=== PATIENT | male | born 1945 | race Caucasian/White ===

== ENCOUNTER 2020-03-28 10:03 | Outpatient (CLI) | payer MEDICARE | END 2020-03-28 10:04 | disposition critical access hospital (66) | LOC: EMS 10:03 | PROVIDERS: ATTEND Emergency Medicine | DX: R00.0 Tachycardia, unspecified (principal) | CPT/HCPCS: A0425; A0429 ==

== ENCOUNTER 2020-03-28 10:44 | Emergency (ER) | payer MEDICARE ==
[2020-03-28] MEDS ORDERED: SODIUM CHLORIDE 0.9% 1,000 ML IV STA (10:56)
[2020-03-28] MEDS ORDERED: METOPROLOL 5 MG/5 ML VIAL IVP STA (10:57)
--- NOTE | 2020-03-28 10:59 | ED Physician Documentation ---
PD HPI CHEST PAIN - Stated complaint Stated Complaint: ELEVATED HEART RATE - Chief complaint Chief Complaint: Cardiac - History obtained from History obtained from: Patient, EMS - History of Present Illness Timing - onset: How many hours ago (about 5 am, so 5-6 hours ago, with waxing and waning symptoms.), Today Timing - onset during: Sleep Timing - duration: Hours Timing - details: Still present, Waxing and waning Quality: Pressure Location: Substernal Radiation: No: Back, Abdominal Worsened by: No: Inspiration, Movement Associated symptoms: Nausea, Feeling faint / dizzy, Palpitations. No: Shortness of air Similar symptoms before: Diagnosis (history of paroxysmal SVT and is on Metoprolol for it. Usually episodes last 10-20 minutes and resolve. Today has had symptoms variably for 5-6 hours. WEnt to walk in clinic but they just called EMS to bring him to ER. No treatment [employer].) Review of Systems Constitutional: denies: Fever, Chills Nose: denies: Rhinorrhea / runny nose, Congestion Throat: denies: Sore throat Cardiac: reports: Palpitations. denies: Chest pain / pressure, Pedal edema, Calf pain Respiratory: reports: Dyspnea. denies: Cough Musculoskeletal: denies: Extremity swelling Neurologic: reports: Generalized weakness, Near syncope (lightheaded anyway). denies: Focal weakness, Numbness PD PAST MEDICAL HISTORY - Past Medical History Cardiovascular: Arrhythmia (ST) Respiratory: None Neuro: None Endocrine/Autoimmune: None - Present Medications Home Medications: Ambulatory Orders Medication Instructions Recorded Confirmed Metoprolol Tartrate [Lopressor] 25 mg PO BID 03/28/20 03/28/20 Metoprolol Tartrate [Lopressor] 25 mg PO BID 7 Days #21 tab 03/28/20 - Allergies Allergies/Adverse Reactions: Allergies Allergy/AdvReac Type Severity Reaction Status Date / Time Sulfa (Sulfonamide Allergy Unknown Verified 03/28/20 11:00 Antibiotics) - Living Situation Living Situation: reports: Alone Living Arrangement: reports: At home - Social History Does the pt smoke?: No Does the pt drink ETOH?: No Does the pt have substance abuse?: No PD ED PE NORMAL - Vitals Vital signs reviewed: Yes - General General: Alert and oriented X 3, Well developed/nourished - Neck Neck: Supple, no meningeal sign, No adenopathy, No JVD - Cardiac Cardiac: No murmur. No: RRR (variable from 80 NSR to 180 SVT. ) - Respiratory Respiratory: Clear bilaterally - Abdomen Abdomen: Soft, Non tender - Derm Derm: Normal color, Warm and dry - Extremities Extremities: No tenderness to palpate, Normal ROM s pain, No edema, No calf tenderness / cord - Neuro Neuro: Alert and oriented X 3, No motor deficit, Normal speech Results - Vitals Vitals: Vital Signs - 24 hr 03/28/20 03/28/20 03/28/20 10:49 11:03 11:08 Temperature 36.5 C Heart Rate 182 H 179 H 117 H Respiratory 39 H 22 97 H Rate Blood Pressure 121/100 H 127/83 H 97/84 H O2 Saturation 100 99 19 L 03/28/20 03/28/20 03/28/20 11:13 11:23 11:26 Temperature Heart Rate 107 H 138 H 107 H Respiratory 19 17 20 Rate Blood Pressure 113/73 93/80 101/67 O2 Saturation 100 98 98 03/28/20 03/28/20 03/28/20 11:32 11:47 12:15 Temperature Heart Rate 84 79 81 Respiratory 20 18 15 Rate Blood Pressure 123/68 123/68 121/72 O2 Saturation 97 97 98 Oxygen O2 Source Room air - EKG (time done) 10:50 Rate: Rate (enter#) (186) Rhythm: SVT Ischemia: Normal ST segments, ST depression (laterally, likely rate related. ) - Labs Labs: Laboratory Tests 03/28/20 03/28/20 03/28/20 11:10 11:10 11:10 WBC 13.0 H RBC 4.88 Hgb 14.7 Hct 44.8 MCV 91.8 MCH 30.1 MCHC 32.8 RDW 12.4 Plt Count 192 MPV 10.3 Neut # (Auto) 11.5 H Lymph # (Auto) 0.7 L [place] # (Auto) 0.7 Eos # (Auto) 0.0 Baso # (Auto) 0.0 Absolute Nucleated RBC 0.00 Nucleated RBC % 0.0 Sodium 139 Potassium 3.8 Chloride 101 Carbon Dioxide 25 Anion Gap 13.0 BUN 16 Creatinine 0.9 Estimated GFR (MDRD) 83 L Glucose 108 H Calcium 8.8 Magnesium 1.9 Total Bilirubin 1.2 H AST 25 ALT 16 Alkaline Phosphatase 51 Troponin I High Sens 42.0 H* Total Protein 6.6 L Albumin 4.0 Globulin 2.6 Albumin/Globulin Ratio 1.5 Lipase 25 PD MEDICAL DECISION MAKING - ED course Complexity details: re-evaluated patient (consistently in NSR after MEtoprolol 5 mg iV. HE feels better. CAn increase his metoprolol dose and he is seeing his lance crewmember coincidentally this coming week. ), considered differential (going into and out of apparent SVT. Does not appear irregular like atrial fib. ), d/w patient Departure - Departure Disposition: Home, Self Care Clinical Impression: Paroxysmal SVT (supraventricular tachycardia) Condition: Stable Record reviewed to determine appropriate education?: Yes Follow-Up: Renate Mcmillan MD [Primary Care Provider] - Prescriptions: Metoprolol Tartrate [Lopressor] 25 mg PO BID 7 Days #21 tab Comments: Hydrated. Increase your metoprolol from 25 mg twice daily to a new dose of 50 mg in the morning and 25 mg at night. Follow-up with your lance crewmember Monday as planned. Return if recurrent episodes despite the increased dose. Discharge Date/Time: 03/28/20 12:23
[2020-03-28 11:20] LABS: BASOPHILS % (AUTO) 0.3 %; EOSINOPHILS % (AUTO) 0.1 %; HGB - HEMOGLOBIN 14.7 g/dL (14.0-18.0); LYMPHOCYTES # (AUTO) 0.7 10^3/uL (1.5-3.5); LYMPHOCYTES % (AUTO) 5.2 %; MEAN CORPUSCULAR HEMOGLOBIN 30.1 pg (27.0-31.0); MEAN CORPUSCULAR HGB CONC 32.8 g/dL (32.0-36.0); MEAN CORPUSCULAR VOLUME 91.8 fL (80.0-94.0); MEAN PLATELET VOLUME 10.3 fL (7.4-11.4); MONOCYTES # (AUTO) 0.7 10^3/uL (0.0-1.0); MONOCYTES % (AUTO) 5.4 %; NEUTROPHILS # (AUTO) 11.5 10^3/uL (1.5-6.6); NEUTROPHILS % (AUTO) 88.7 %; PLT - PLATELET COUNT 192 10^3/uL (130-450); RED BLOOD COUNT 4.88 10^6/uL (4.70-6.10); RED CELL DISTRIBUTION WIDTH 12.4 % (12.0-15.0)
[2020-03-28] MEDS: METOPROLOL 5 MG/5 ML VIAL IVP STA ×2 (11:30→11:35)
--- NOTE | 2020-03-28 11:36 | XRAY Report ---
PROCEDURE: Chest 1 View X-Ray INDICATIONS: Chest Pain TECHNIQUE: One view of the chest was acquired. COMPARISON: None. FINDINGS: Surgical changes and devices: None. Lungs and pleura: No pleural effusions or pneumothorax. Lungs are clear. Mediastinum: Mediastinal contours appear normal. Heart size is normal. Bones and chest wall: No suspicious bony lesions. Age-appropriate degenerative changes are seen. Overlying soft tissues appear unremarkable. IMPRESSION: Portable chest within normal limits for age. Reviewed by: Mychal Moraes MD on 03/28/2020 10:35 AM [facility] Approved by: Mychal Moraes MD on 03/28/2020 10:35 AM [facility] Station ID: [id number]
[2020-03-28 11:40] LABS: ALBUMIN/GLOBULIN RATIO 1.5 (1.0-2.2); BILIRUBIN,TOTAL 1.2 mg/dL (0.2-1.0); CALCIUM 8.8 mg/dL (8.5-10.3); CREATININE 0.9 mg/dL (0.6-1.2); MAGNESIUM 1.9 mg/dL (1.7-2.8); TOTAL PROTEIN 6.6 g/dL (6.7-8.2)
[2020-03-28 12:15] VITALS: BP 121/72
== END 2020-03-28 12:23 | disposition home or self-care (01) ==
LOC: ED 10:44
DX: I47.1 Supraventricular tachycardia (principal)
CPT/HCPCS: 80053; 83690; 83735; 84484; 85025; 93005; 96374; 99284

== ENCOUNTER 2020-04-27 10:31 | Outpatient (CLI) | payer MEDICARE | END 2020-04-27 10:32 | disposition critical access hospital (66) | LOC: EMS 10:31 | PROVIDERS: ATTEND Emergency Medicine | DX: R00.2 Palpitations (principal); R07.89 Other chest pain | CPT/HCPCS: A0425; A0427 ==

== ENCOUNTER 2020-04-27 11:14 | Emergency (ER) | payer MEDICARE ==
[2020-04-27] MEDS ORDERED: METOPROLOL 5 MG/5 ML VIAL IVP STA ×4 (11:23→15:06)
[2020-04-27] MEDS ORDERED: SODIUM CHLORIDE 0.9% 1,000 ML IV STA (11:23)
--- NOTE | 2020-04-27 11:23 | ED Physician Documentation ---
PD HPI CHEST PAIN - Stated complaint Stated Complaint: SVT - Chief complaint Chief Complaint: Cardiac - History obtained from History obtained from: Patient, EMS - History of Present Illness Timing - onset: How many hours ago (few), Today, Last night Timing - onset during: Sleep, Rest Timing - duration: Hours (few) Timing - details: Gradual onset, Waxing and waning Quality: Tightness, Other (feeling of fast heart rate up and down, but has not relented after few hours. History of SVT and is due to have ablation at by Dr. White, Cardiology at [facility].). No: Pressure Location: Substernal, Left chest Radiation: No: Neck, Back Improved by: No: Rest Worsened by: No: Exertion, Movement Associated symptoms: Shortness of air, Palpitations. No: Nausea, Feeling faint / dizzy Similar symptoms before: Diagnosis (SVT episodes; no history of atrial fib. Prior ECG episodes found SVT.) Recently seen: Clinic, Emergency Dept (1 month ago for similar and had apparent SVT improved with dose metoprolol. Had his PO dose increased and followed up with his Clinical Nurse Occupational Medicine at [facility]. Then went to [facility] Clinical Nurse Occupational Medicine and has sched uled ablation at in 2 days.) Review of Systems Constitutional: denies: Fever, Chills Nose: denies: Rhinorrhea / runny nose, Congestion Throat: denies: Sore throat Cardiac: reports: Chest pain / pressure, Palpitations. denies: Pedal edema, Calf pain Respiratory: reports: Dyspnea. denies: Cough, Wheezing GI: denies: Abdominal Pain, Nausea, Vomiting Musculoskeletal: denies: Extremity swelling PD PAST MEDICAL HISTORY - Past Medical History Cardiovascular: Arrhythmia (SVT) Respiratory: None Neuro: None Endocrine/Autoimmune: None - Past Surgical History Past Surgical History: Yes Cardiovascular: Vascular surgery HEENT: Tonsil/Adenoidectomy - Present Medications Home Medications: Ambulatory Orders Medication Instructions Recorded Confirmed Metoprolol Tartrate [Lopressor] 25 mg PO BID 03/28/20 04/27/20 - Allergies Allergies/Adverse Reactions: Allergies Allergy/AdvReac Type Severity Reaction Status Date / Time Sulfa (Sulfonamide Allergy Unknown Verified 04/27/20 11:22 Antibiotics) - Social History Does the pt smoke?: No Smoking Status: Never smoker Does the pt drink ETOH?: No Does the pt have substance abuse?: No - Immunizations Immunizations are current?: Yes - POLST Patient has POLST: No PD ED PE NORMAL - Vitals Vital signs reviewed: Yes - General General: Alert and oriented X 3, No acute distress, Well developed/nourished - Neck Neck: Supple, no meningeal sign, No adenopathy, No JVD - Cardiac Cardiac: No murmur. No: RRR (rapid heart rate at 180s, with occasional slowing to what appears sinus with possible P waves vs flutter, then back to fast 180s.) - Respiratory Respiratory: Clear bilaterally - Abdomen Abdomen: Soft, Non tender - Derm Derm: Normal color, Warm and dry - Extremities Extremities: No tenderness to palpate, Normal ROM s pain, No edema, No calf tenderness / cord - Neuro Neuro: Alert and oriented X 3, No motor deficit, No sensory deficit, Normal speech Eye Opening: Spontaneous Motor: Obeys Commands Verbal: Oriented GCS Score: 15 Results - Vitals Vitals: Vital Signs - 24 hr 04/27/20 04/27/20 04/27/20 11:20 11:37 11:43 Temperature 36.3 C L 36.7 C Heart Rate 190 H 100 135 H Respiratory 18 15 13 Rate Blood Pressure 162/100 H 90/69 114/89 H O2 Saturation 99 97 98 04/27/20 04/27/20 04/27/20 12:01 12:04 12:30 Temperature 37.3 C Heart Rate 103 H 101 H 117 H Respiratory 12 11 L 15 Rate Blood Pressure 114/72 114/72 125/85 H O2 Saturation 97 97 100 04/27/20 04/27/20 04/27/20 13:00 13:30 14:07 Temperature Heart Rate 113 H 112 H 96 Respiratory 15 12 10 L Rate Blood Pressure 132/101 H 126/88 H 115/83 H O2 Saturation 100 98 97 04/27/20 04/27/20 04/27/20 14:30 15:00 15:30 Temperature Heart Rate 110 H 100 99 Respiratory 15 13 12 Rate Blood Pressure 118/86 H 127/95 H 130/100 H O2 Saturation 99 100 99 Oxygen O2 Source Room air - EKG (time done) 11:19 Rate: Rate (enter#) (193) Rhythm: SVT [place]: Normal Ischemia: Non specific changes (laterally c/w rate related ischemia). No: ST elevation c/w ischemia Compare to prior EKG: Other (similar to prior episode of SVT from a month ago.) 12:24 Rate: Rate (enter#) (98) Rhythm: Atrial fibrillation Ischemia: Normal ST segments. No: ST elevation c/w ischemia, ST depression - Labs Labs: Laboratory Tests 04/27/20 04/27/20 04/27/20 11:34 11:34 11:34 WBC 7.5 RBC 5.19 Hgb 15.5 Hct 47.1 MCV 90.8 MCH 29.9 MCHC 32.9 RDW 12.2 Plt Count 208 MPV 10.2 Neut # (Auto) 5.8 Lymph # (Auto) 1.2 L [place] # (Auto) 0.4 Eos # (Auto) 0.1 Baso # (Auto) 0.0 Absolute Nucleated RBC 0.00 Nucleated RBC % 0.0 Sodium 139 Potassium 3.9 Chloride 104 Carbon Dioxide 25 Anion Gap 10.0 BUN 20 Creatinine 0.8 Estimated GFR (MDRD) 95 Glucose 109 H Calcium 8.9 Magnesium 1.9 Total Bilirubin 0.8 AST 24 ALT 12 Alkaline Phosphatase 55 B-Natriuretic Peptide 48 Total Protein 6.9 Albumin 4.2 Globulin 2.7 Albumin/Globulin Ratio 1.6 Lipase 36 Nasal Adenovirus (PCR) Nasal B. parapertussis DNA (PCR) Nasal Coronavir 229E PCR Nasal Coronavir HKU1 PCR Nasal Coronavir NL63 PCR Nasal Coronavir OC43 PCR Nasal Enterovir/Rhinovir PCR Nasal Influenza B PCR Nasal Influenza A PCR Nasal Parainfluen 1 PCR Nasal Parainfluen 2 PCR Nasal Parainfluen 3 PCR Nasal Parainfluen 4 PCR Nasal RSV (PCR) Nasal B.pertussis DNA PCR Nasal C.pneumoniae (PCR) Doe Human Metapneumo PCR Nasal M.pneumoniae (PCR) Nasal SARS-CoV-2 (PCR) Ethyl Alcohol < 5.0 04/27/20 15:00 WBC RBC Hgb Hct MCV MCH MCHC RDW Plt Count MPV Neut # (Auto) Lymph # (Auto) [place] # (Auto) Eos # (Auto) Baso # (Auto) Absolute Nucleated RBC Nucleated RBC % Sodium Potassium Chloride Carbon Dioxide Anion Gap BUN Creatinine Estimated GFR (MDRD) Glucose Calcium Magnesium Total Bilirubin AST ALT Alkaline Phosphatase B-Natriuretic Peptide Total Protein Albumin Globulin Albumin/Globulin Ratio Lipase Nasal Adenovirus (PCR) NOT DETECTED Nasal B. parapertussis DNA (PCR) NOT DETECTED Nasal Coronavir 229E PCR NOT DETECTED Nasal Coronavir HKU1 PCR NOT DETECTED Nasal Coronavir NL63 PCR NOT DETECTED Nasal Coronavir OC43 PCR NOT DETECTED Nasal Enterovir/Rhinovir PCR NOT DETECTED Nasal Influenza B PCR NOT DETECTED Nasal Influenza A PCR NOT DETECTED Nasal Parainfluen 1 PCR NOT DETECTED Nasal Parainfluen 2 PCR NOT DETECTED Nasal Parainfluen 3 PCR NOT DETECTED Nasal Parainfluen 4 PCR NOT DETECTED Nasal RSV (PCR) NOT DETECTED Nasal B.pertussis DNA PCR NOT DETECTED Nasal C.pneumoniae (PCR) NOT DETECTED Doe Human Metapneumo PCR NOT DETECTED Nasal M.pneumoniae (PCR) NOT DETECTED Nasal SARS-CoV-2 (PCR) NOT DETECTED Ethyl Alcohol - Rads (name of study) chest xray Radiology: Prelim report reviewed (no acute process), See rad report PD MEDICAL DECISION MAKING - ED course Complexity details: re-evaluated patient (rate slowed but now clearly atrial fib. Remains rate controlled at 95-110. No symptoms.), considered differential (SVT vs atrial fib as it does slow briefly for few seconds to 110-120 then back to 180-190.), d/w patient, d/w network consultant (Dr. White, Cardiology with [facility], Who reviewed the EKGs that we faxed with him as well as the story that I gave. He would prefer not to cardiovert the patient given an upcoming ablation in 2 days. He states to discharge the patient rate controlled in A. fib and they will follow up with him.) ED course: The patient presented with rapid heart rate SVT at 190s. It was pausing at times and appearing almost sinus for 5 or 6 beats and then resume at the fast rate. He was therefore given metoprolol to have a more consistent rate control as a did not feel was a matter of converting per se. His heart rate did slow down with metoprolol and was 1 10-1 15 with the irregular rhythm consistent with atrial fibrillation. I talked with Dr. White who is his teacher assistant [facility] who is doing an ablation in 2 days. I faxed the EKGs to him at his request. At this point he would have the patient rate controlled on the metoprolol twice daily and they will follow him up tomorrow by phone in for the ablation on Monday. If still in fibrillation they may cardiovert rather than embark on the ablation per se but will assume the care at this point. The patient is feeling good without any discomfort and his blood pressure is adequate. He does seem stable for discharge though his heart rate is still approximately 100-105. Departure - Departure Disposition: 01 Home, Self Care Clinical Impression: SVT (supraventricular tachycardia), Atrial fibrillation with RVR Condition: Stable Record reviewed to determine appropriate education?: Yes Instructions: ED Afib Follow-Up: Renate Mcmillan MD [Primary Care Provider] - Luis White MD [Physician No Access] - Comments: Resume your metoprolol 25 mg twice daily. Continue your other usual medicines. Dr. White's office will contact you tomorrow to update on how you are feeling. They will decide on the treatment plan for having you have your ablation on Monday. Return if fast heart rate on controlled at home. Discharge Date/Time: 04/27/20 15:58
[2020-04-27] MEDS ORDERED: MAGNESIUM SULFATE 2 GRAM 2 GM/50 ML BAG IV ONE (11:24)
[2020-04-27 11:39] LABS: BASOPHILS % (AUTO) 0.4 %; EOSINOPHILS # (AUTO) 0.1 10^3/uL (0.0-0.7); EOSINOPHILS % (AUTO) 0.8 %; HCT - HEMATOCRIT 47.1 % (42.0-52.0); HGB - HEMOGLOBIN 15.5 g/dL (14.0-18.0); LYMPHOCYTES # (AUTO) 1.2 10^3/uL (1.5-3.5); LYMPHOCYTES % (AUTO) 15.9 %; MEAN CORPUSCULAR HEMOGLOBIN 29.9 pg (27.0-31.0); MEAN CORPUSCULAR HGB CONC 32.9 g/dL (32.0-36.0); MEAN CORPUSCULAR VOLUME 90.8 fL (80.0-94.0); MEAN PLATELET VOLUME 10.2 fL (7.4-11.4); MONOCYTES # (AUTO) 0.4 10^3/uL (0.0-1.0); MONOCYTES % (AUTO) 5.6 %; NEUTROPHILS # (AUTO) 5.8 10^3/uL (1.5-6.6); PLT - PLATELET COUNT 208 10^3/uL (130-450); RED BLOOD COUNT 5.19 10^6/uL (4.70-6.10); RED CELL DISTRIBUTION WIDTH 12.2 % (12.0-15.0); WHITE BLOOD COUNT 7.5 x10^3/uL (4.8-10.8)
[2020-04-27 11:49] LABS: ALBUMIN 4.2 g/dL (3.2-5.5); ALBUMIN/GLOBULIN RATIO 1.6 (1.0-2.2); ALKALINE PHOSPHATASE 55 IU/L (42-121); ALT ALANINE AMINOTRANSFERASE 12 IU/L (10-60); AST ASPARTATE AMINOTRANSFERASE 24 IU/L (10-42); BILIRUBIN,TOTAL 0.8 mg/dL (0.2-1.0); BUN - BLOOD UREA NITROGEN 20 mg/dL (6-20); CALCIUM 8.9 mg/dL (8.5-10.3); CARBON DIOXIDE - CO2 25 mmol/L (21-32); CHLORIDE 104 mmol/L (101-111); CREATININE 0.8 mg/dL (0.6-1.2); ETOH - ETHANOL < 5.0 mg/dL; GFR - MDRD 95 (>89); GLUCOSE 109 mg/dL (70-100); LIPASE 36 U/L (22-51); MAGNESIUM 1.9 mg/dL (1.7-2.8); POTASSIUM 3.9 mmol/L (3.5-5.0); SODIUM 139 mmol/L (135-145); TOTAL PROTEIN 6.9 g/dL (6.7-8.2)
--- NOTE | 2020-04-27 12:00 | XRAY Report ---
PROCEDURE: Chest 1 View X-Ray INDICATIONS: Chest Pain TECHNIQUE: One view of the chest was acquired. COMPARISON: 03/28/2020 FINDINGS: Surgical changes and devices: None. Lungs and pleura: No pleural effusions or pneumothorax. Lungs are clear. Mediastinum: Mediastinal contours appear normal. Heart size is normal. Bones and chest wall: No suspicious bony lesions. Overlying soft tissues appear unremarkable. IMPRESSION: No acute cardiopulmonary pathology. Reviewed by: Dylon Madera MD on 04/27/2020 11:59 AM PDT Approved by: Dylon Madera MD on 04/27/2020 11:59 AM PDT Station ID: [id number]
[2020-04-27] MEDS ORDERED: PROCAINAMIDE 100 MG/1 ML 10 ML MDV IV ONE (13:35)
[2020-04-27] MEDS ORDERED: PROCAINAMIDE 1,000 MG in SODIUM CHLORIDE 0.9% 240 ML IV STA (13:43)
[2020-04-27] MEDS ORDERED: PROCAINAMIDE 1,000 MG in SODIUM CHLORIDE 0.9% 240 ML IV SCH (14:00)
[2020-04-27] MEDS ORDERED: METOPROLOL SUCCINATE 25 MG TABLET PO STA (15:06)
[2020-04-27 15:33] VITALS: BP 130/100
[2020-04-27 16:11] LABS: CORONAVIRUS 229E-RESP PCR NOT DETECTED; CORONAVIRUS HKU1-RESP PCR NOT DETECTED; CORONAVIRUS NL63-RESP PCR NOT DETECTED; CORONAVIRUS OC43-RESP PCR NOT DETECTED
[2020-04-27 16:12] LABS: B. PARAPERTUSSIS- RESP PCR PAN NOT DETECTED; B. PERTUSSIS- RESP PCR PANEL NOT DETECTED; C. PNEUMONIAE- RESP PCR PANEL NOT DETECTED; HUMAN METAPNEUMOVIRUS NOT DETECTED; INFLUENZA A- RESP PCR PANEL NOT DETECTED; INFLUENZA B - RESP PCR PANEL NOT DETECTED; M. PNEUMONIAE- RESP PCR PANEL NOT DETECTED; PARAINFLUENZA VIRUS 1 NOT DETECTED; PARAINFLUENZA VIRUS 2 NOT DETECTED; PARAINFLUENZA VIRUS 3 NOT DETECTED; PARAINFLUENZA VIRUS 4 NOT DETECTED; RHINOVIRUS/ENTEROVIRUS NOT DETECTED; RSV- RESP PCR PANEL NOT DETECTED; SARS-CoV-2 -RESP PCR PANEL NOT DETECTED
== END 2020-04-27 15:58 | disposition home or self-care (01) ==
LOC: EDUNIT# → ED 11:14
DX: I47.1 Supraventricular tachycardia (principal); I48.91 Unspecified atrial fibrillation; Z20.822 Contact with and (suspected) exposure to COVID-19
CPT/HCPCS: 36415; 71045; 80053; 83690; 83735; 83880; 85025; 87631; 93005; 96361; 96365; 96367; 96375; 96376; 99284; 99285; A9270; G0480; J2690; 0202U; 80320

== ENCOUNTER 2020-04-28 13:57 | Outpatient (CLI) | payer MEDICARE | END 2020-04-28 13:58 | disposition home or self-care (01) | LOC: RT 13:57 | PROVIDERS: ATTEND Internal Medicine Cardiovascular Disease | DX: I47.1 Supraventricular tachycardia (principal); I48.91 Unspecified atrial fibrillation | CPT/HCPCS: 93005 ==

== ENCOUNTER 2020-11-26 11:46 | Outpatient (CLI) | payer OTHER ==
[2020-11-27 11:16] LABS: HIV AG/AB 4TH GEN NON-REACTIVE (NON-REACTIVE)
[2020-11-27 12:56] LABS: HEPATITIS B SURFACE ANTIGEN NON-REACTIVE (NON-REACTIVE)
[2020-11-27 12:58] LABS: HEPATITIS C ANTIBODY NON-REACTIVE (NON-REACTIVE)
== END 2020-11-26 11:47 | disposition home or self-care (01) ==
LOC: LAB 11:46
PROVIDERS: ATTEND Obstetrics & Gynecology Reproductive Endocrinology
DX: Z11.59 Encounter for screening for other viral diseases (principal); Z11.3 Encounter for screening for infections with a predominantly sexual mode of transmission
CPT/HCPCS: 86317; 86592; 86780; 86803; 87340; 87389